=== PATIENT | female | born 1995 | race African-American/Black ===

== ENCOUNTER 2017-07-29 16:10 | Emergency (ER) | payer SELFPAY ==
[~2017-07-29] VITALS: Ht 157.5 cm; Wt 61.0 kg
[2017-07-29 16:28] VITALS: BP 128/54; PULSE 89; RESP 16; TEMP 99.3; O2SAT 100
[2017-07-29] MEDS ORDERED: ACYC800T PO (18:50)
--- NOTE | 2017-07-29 18:57 | PD ---
HPI Chief Complaint: Lump, Cyst, Hernia Time Seen by Provider: 18:22 Travel History International Travel<30 days: No Contact w/Intl Traveler<30days: No Traveled to known affect area: No History of Present Illness HPI The patient was seen and examined in the presence of the nurse. This patient complains of a lump right groin. She also has some painful genital lesions. Duration several days. No alleviating factors. She is sexually active. She says she uses a condom but they usually break. Denies any medical history PFSH Past Medical History Asthma: Yes Diminished Hearing: No Genitourinary: Yes Medical other: Yes (RECENT BLOOD IN STOOL) Immunizations Current: Yes Tetanus Vaccination: > 5 Years Influenza Vaccination: No ?: Not LMP: 07/09/17 Past Surgical History Surgical History: No Previous Surgery Social History Alcohol Use: No Tobacco Use: No Substance Use: No Allergies-Medications (Allergen,Severity, Reaction): Coded Allergies: No Known Allergies (Verified Allergy, Unknown, 07/29/17) Reported Meds & Prescriptions Reported Meds & Active Scripts Active Acyclovir 800 Mg Tab 800 Mg PO TID Review of Systems General / Constitutional: No: Fever Cardiovascular: No: Chest Pain or Discomfort Respiratory: No: Cough Physical Exam Narrative GASTROINTESTINAL: Abdomen soft, non-tender, nondistended. Positive bowel sounds. No hepato-splenomegaly, or palpable masses. No guarding. Groin: Patient has a small inguinal lymph node on the left side : Patient has several left sided labial ulcers They look herpetic in nature No nodules Psych: Normal mood and affect. Normal insight and judgment. Data Data Last Documented VS Vital Signs Date Time Temp Pulse Resp B/P (MAP) Pulse Ox O2 Delivery O2 Flow Rate FiO2 07/29/17 16:28 99.3 89 16 128/54 (78) 100 MDM Medical Decision Making Medical Screen Exam Complete: Yes Emergency Medical Condition: Yes Medical Record Reviewed: Yes Differential Diagnosis Herpes, syphilis, chancroid Narrative Course I have reviewed the patient's electronic medical record. Had lengthy discussion with the patient. I believe this is a new onset of herpetic lesions. Patient understands that this is not a 100% tissue diagnosis but this is what I believe it is from a visual inspection. I recommend she use condoms Her sexual partner should get evaluations from their physicians She should get a full STD evaluation health Department or her family physician I prescribed her week of acyclovir Diagnosis Primary Impression: HSV (herpes simplex virus) infection Referrals: [facility] as needed [facility] as needed Patient Instructions: General Instructions Departure Forms: Tests/Procedures Additional Instructions: Use acyclovir for one week Follow-up with primary care physician for further evaluation Use condoms Med/Other Pt SpecificInfo: Prescription(s) given Scripts Acyclovir (Acyclovir) 800 Mg Tab 800 MG PO TID for Mgmt Viral Infection, #21 TAB 0 Refills Prov: Gilberto Davis MD 07/29/17 Disposition: 01 DISCHARGE HOME Condition: Stable ([place] later) Gilberto Davis MD Jul 29, 2017 18:57
[2017-07-29 19:08] VITALS: BP 142/74
== END 2017-07-29 19:40 | disposition home or self-care (01) ==
LOC: PHED 16:10
DX: B00.9 Herpesviral infection, unspecified (principal); J45.909 Unspecified asthma, uncomplicated
CPT/HCPCS: 99284